=== PATIENT | female | born 1990 | race Caucasian/White ===

== ENCOUNTER 2020-04-03 07:48 | Outpatient (CLI) | payer OTHER, SELFPAY ==
[2020-04-03 08:36] LABS: Basophils Absolute Auto 0.1 K/mm3 (0.0-0.1); Eosinophils Absolute Auto 0.1 K/mm3 (0-0.3); Eosinophils Percent Auto 2.3 % (0-4.4); Hematocrit 36.4 % (37.0-47.0); Hemoglobin 12.8 g/dL (12.0-15.0); Immature Granulocyte Absolute 0.01 K/mm3 (0.00-0.031); Immature Granulocyte Percent A 0.2 % (0-0.5); Lymphocytes Absolute Auto 2.23 K/mm3 (0.9-3.2); Lymphocytes Percent Auto 42.8 % (18.3-44.2); Mean Corpuscular HGB Conc 35.2 g/dl (32-36); Mean Corpuscular Hemoglobin 31.8 pg (26-34); Mean Corpuscular Volume 90.3 fl (80-100); Mean Platelet Volume 9.1 fl (7.4-10.4); Monocytes Absolute Auto 0.4 K/mm3 (0.1-0.6); Monocytes Percent Auto 7.7 % (2.6-8.5); Neutrophils Absolute Auto 2.4 K/mm3 (1.3-6.7); Platelet Count Result 297 k/mm3 (150-375); Red Blood Count 4.03 M/mm3 (4.2-5.4); White Blood Count 5.2 K/mm3 (4.5-10.0)
[2020-04-03 08:54] LABS: Alanine Aminotransferase 17 U/L (4-35); Albumin Level 4.4 g/dL (3.5-5.1); Alkaline Phosphatase 49 U/L (38-126); Anion Gap 6 mmol/L (8-16); Aspartate Amino Transferase 26 U/L (14-36); Bilirubin,Total 0.5 mg/dL (0.2-1.3); Blood Urea Nitrogen 13 mg/dL (7-17); Calcium 9.4 mg/dL (8.4-10.2); Carbon Dioxide 28 mmol/L (22-30); Chloride 103 mmol/L (98-107); Cholesterol 228 mg/dL (0-200); Estimated Glomerular Filt Rate > 60; Glucose 89 mg/dL (65-105); HDL Direct 70 mg/dL; Potassium 4.2 mmol/L (3.4-5.0); Sodium 137 mmol/L (137-145); Triglycerides 95 mg/dL (<150)
[2020-04-03 09:05] LABS: LDL Cholesterol Direct 144 mg/dL
[2020-04-07 11:20] LABS: Vitamin D 1,25 (OH)2 Total 58 pg/mL (18-72); Vitamin D2 1,25 (OH)2 <8 pg/mL; Vitamin D3 1,25 (OH)2 58 pg/mL
== END 2020-04-03 07:49 | disposition home or self-care (01) ==
LOC: ANHLAB 07:52
PROVIDERS: PCP Student in an Organized Health Care Education/Training Program; Visit Provider Student in an Organized Health Care Education/Training Program
DX: Z00.00 Encounter for general adult medical examination without abnormal findings (principal); Z13.220 Encounter for screening for lipoid disorders
CPT/HCPCS: 36415; 80053; 80061; 82652; 84443; 85025

== ENCOUNTER 2021-09-16 20:07 | Emergency (ER) | payer OTHER, SELFPAY ==
[2021-09-16 20:09] VITALS: BP 109/68; PULSE 88; RESP 20; TEMP 36.3; O2SAT 100
--- NOTE | 2021-09-16 20:15 | ECG_ITS ---
Measurements Intervals [place] Rate: 79 P: 77 LA: 169 QRS: -74 QRSD: 102 T: 59 QT: 387 QTc: 445 Interpretive Statements SINUS RHYTHM INCOMPLETE RIGHT BUNDLE BRANCH BLOCK LEFT ANTERIOR FASCICULAR BLOCK ABNORMAL ECG Electronically Signed On 09-17-2021 6:34:09 CDT by Jake Coleman D.O.
[2021-09-16] MEDS: diazePAM INJ (*CRX) 10 MG/2 ML SYRINGE 2 MG IV PUSH (20:40)
[2021-09-16 20:41] LABS: Basophils Absolute Auto 0.1 K/mm3 (0.0-0.1); Basophils Percent Auto 0.6 % (0.2-1.2); Eosinophils Absolute Auto 0.1 K/mm3 (0-0.3); Eosinophils Percent Auto 0.6 % (0-4.4); Hematocrit 33.3 % (37.0-47.0); Hemoglobin 11.5 g/dL (12.0-15.0); Immature Granulocyte Absolute 0.02 K/mm3 (0.00-0.031); Immature Granulocyte Percent A 0.2 % (0-0.5); Lymphocytes Absolute Auto 2.41 K/mm3 (0.9-3.2); Lymphocytes Percent Auto 29.4 % (18.3-44.2); Mean Corpuscular HGB Conc 34.5 g/dl (32-36); Mean Corpuscular Hemoglobin 30.7 pg (26-34); Mean Corpuscular Volume 88.8 fl (80-100); Mean Platelet Volume 8.7 fl (7.4-10.4); Monocytes Absolute Auto 0.5 K/mm3 (0.1-0.6); Neutrophils Absolute Auto 5.2 K/mm3 (1.3-6.7); Neutrophils Percent Auto 63.2 % (45.5-73.1); Platelet Count Result 345 k/mm3 (150-375); Red Blood Count 3.75 M/mm3 (4.2-5.4); White Blood Count 8.2 K/mm3 (4.5-10.0)
[2021-09-16 20:50] LABS: Anion Gap 8 mmol/L (8-16); Blood Urea Nitrogen 14 mg/dL (7-17); Calcium 8.2 mg/dL (8.4-10.2); Carbon Dioxide 20 mmol/L (22-30); Chloride 108 mmol/L (98-107); Estimated CRCL calculation 81 ml/min; Estimated Glomerular Filt Rate > 60; Glucose 93 mg/dL (65-110); Potassium 3.5 mmol/L (3.4-5.0); Sodium 136 mmol/L (137-145)
[2021-09-16 21:27] LABS: Appearance Urine Clear (Clear); Bilirubin Urine Negative (Negative); Blood Urine Negative (Negative); Color Urine Yellow (Yellow); Glucose Urine UA Negative (Negative); Ketones Urine 1+ mg/dL (Negative); Leukocyte Esterase Ur Negative LEU/UL (Negative); Nitrate Urine Negative (Negative); Protein Urine Negative (Negative); Specific Grav Ur 1.015 (1.001-1.035); Urobilinogen Urine 0.2 mg/dL (<2.0); pH Urine 7.5 (5.0-9.0)
[2021-09-16 21:33] LABS: Mucus Urine Rare /lpf; Squamous Epithelial Cell Urine Rare /hpf (Few); WBC Urine 0-3 /hpf
[2021-09-16 21:35] LABS: Add Urine Microscopic? YES
[2021-09-16] MEDS: PROMETHAZINE HCL 25 MG/ML AMPUL 12.5 MG IV PUSH (21:38)
[2021-09-16] MEDS: SODIUM CHLORIDE 0.9% IV 1,000 ML 999 ML IV CONT (21:41)
--- NOTE | 2021-09-16 22:33 | ED.GENADULT ---
HPI - General Adult General Chief complaint: Dizziness Stated complaint: Nausea Time Seen by Provider: 09/16/21 20:11 History of Present Illness HPI narrative: Patient is a 30-year-old female who presents ER with dizziness. Rotational and worse with turning her head. Ongoing throughout the day. Has tried meclizine and Dramamine without improvement. They have all made her tired. She began having some vomiting this evening. She had taken some Zofran at home during the day. She received Zofran by EMS as well as some IV fluids. No focal weakness. She has had some tingling in her fingers when she gets extremely dizzy but feels like she has increased respiratory rate at that time. She has had no loss of consciousness. She reports she recently had COVID a couple weeks ago. No thunderclap headache or change in vision or hearing. No fevers or chills or sweats. She does have pressure in the left ear. Related Data Home Medications Medication Instructions Recorded Confirmed fluticasone propionate 50 1 spray intranasal DAILY 01/11/20 01/20/21 mcg/actuation nasal spray,suspension (Flonase Allergy Relief) loratadine 10 mg tablet (Claritin) 10 mg PO DAILY 01/11/20 01/20/21 vits 75-iron 28 mg-folic pkg PO 01/11/20 01/20/21 acid 800 mcg-omega-3 oral combo pack (One A Day Women's DHA) sumatriptan succinate 25 mg tablet 25 mg PO ONCE PRN 01/20/21 01/20/21 (Imitrex) Allergies Allergy/AdvReac Type Severity Reaction Status Date / Time acetaminophen [From [place]] AdvReac Nausea Verified 01/20/21 09:04 hydrocodone [From [place]] AdvReac Nausea Verified 01/20/21 09:04 Review of Systems Review of Systems: All systems reviewed & are unremarkable except as noted in HPI and below Constitutional: Constitutional: Denies chills, Denies fatigue and Denies fever(s) Eyes: Eyes: Denies change in vision ENT: Reports vertigo, Denies nasal congestion and Denies sore throat Comments: Ear pressure left side Cardiovascular: Cardiovascular: Denies chest pain, Denies rapid heart rate and Denies radiating jaw, neck or arm pain Respiratory: Respiratory: Denies cough and Denies dyspnea Gastrointestinal: Gastrointestinal: Denies abdominal pain, Reports nausea and Reports vomiting Neurologic: Reports vertigo, Denies syncope, Denies headache(s), Denies focal weakness and Denies numbness PMFSH Past Medical History Medical History Irritable bowel Migraines Surgical History Surgical History History of tonsillectomy [place] teeth removed Family History Family History Grandparent Diabetes mellitus Acute myocardial infarction Hypertension Father High cholesterol Social History Social History Smoking status: Never smoker Alcohol intake: current Substance use: never Exam Narrative: GENERAL: Well-appearing, well-nourished, and in no acute distress. HEAD: Normocephalic, atraumatic. EYES: PERRL and EOMI. ENT:Mucous membranes moist. Ear canals free of cerumen. Normal TMs bilaterally. CHEST: Clear to auscultation. No respiratory distress. HEART: Regular rate and rhythm. Normal peripheral pulses. ABDOMEN: Soft, nontender, nondistended. EXTREMITIES: Normal range of motion. No edema. NEURO: Alert and oriented x3. PSYCH: Normal mood and affect. Course Course Emergency Course: Patient feels slight improvement after 2 L of fluid and promethazine but still has some mild dizziness. Left ear manipulation did produce a pop suggesting opening of eustachian tube. Discussed return precautions. Discharge home. Vital Signs Vital signs: Vital Signs Temperature 97.4 F L 09/16/21 20:09 Pulse Rate 88 09/16/21 20:09 Respiratory Rate 20 09/16/21 20:09 Blood Pressure 10
[2021-09-16 22:50] VITALS: BP 105/55; PULSE 75; RESP 18; O2SAT 99
== END 2021-09-16 22:53 | disposition home or self-care (01) ==
PROVIDERS: Emergency Provider Emergency Medicine; PCP Student in an Organized Health Care Education/Training Program
DX: H81.392 Other peripheral vertigo, left ear (principal)
CPT/HCPCS: 36415; 80048; 81001; 81025; 85025; 93005; 96361; 96374; 96375; 99284; J2550; J3360; J7030

== ENCOUNTER 2021-10-12 06:14 | Day surgery (SDC) | payer OTHER, SELFPAY ==
[2021-10-12] VITALS (14 sets, daily range): BP systolic 96–134; BP diastolic 50–73; PULSE 66–120; RESP 14–24; TEMP 37.1–37.4; O2SAT 98–100
--- NOTE | ~2021-10-12 | CT_ITS ---
EXAMINATION: CT abdomen pelvis w con DATE: 10/12/2021 07:40 INDICATION: Abdominal pain. Nausea and vomiting. TECHNIQUE: Computed tomography (CT) of the abdomen and pelvis was performed with 100 mL Omnipaque 350 intravenous contrast. Automated exposure control and iterative reconstruction technique were employe d. The dose-length product was 345.06 mGy-cm. COMPARISON: None. FINDINGS: The visualized portions of the lung bases are clear without pneumonia or pleural effusion. The heart size is normal. No pericardial effusion. The liver, gallbladder, spleen, pancreas, adrenal glands, and kidneys are normal. The appendix is fluid-filled and dilated to 10 mm with wall thickenin g and surrounding fat stranding, consistent with appendicitis. There are no pathologically enlarged l ymph nodes. There is no free intraperitoneal fluid. The bones are unremarkable. IMPRESSION: 1. Acute appendicitis. Reviewed, dictated and finalized at location A. IMPRESSION: 1. Acute appendicitis.
[2021-10-12] MEDS: ONDANSETRON INJ 4 MG/2 ML VIAL IV PUSH (06:34)
[2021-10-12] MEDS: HYDROmorphone HCL INJ (*CRX) 1 MG/ML SYR 0.5 MG IV PUSH (06:46)
[2021-10-12 06:47] LABS: Basophils Absolute Auto 0.1 K/mm3 (0.0-0.1); Basophils Percent Auto 0.2 % (0.2-1.2); Hematocrit 35.6 % (37.0-47.0); Hemoglobin 12.2 g/dL (12.0-15.0); Immature Granulocyte Percent A 0.5 % (0-0.5); Lymphocytes Absolute Auto 1.91 K/mm3 (0.9-3.2); Lymphocytes Percent Auto 9.4 % (18.3-44.2); Mean Corpuscular HGB Conc 34.3 g/dl (32-36); Mean Corpuscular Hemoglobin 30.4 pg (26-34); Mean Corpuscular Volume 88.8 fl (80-100); Mean Platelet Volume 9.3 fl (7.4-10.4); Monocytes Absolute Auto 1.3 K/mm3 (0.1-0.6); Monocytes Percent Auto 6.5 % (2.6-8.5); Neutrophils Absolute Auto 16.8 K/mm3 (1.3-6.7); Neutrophils Percent Auto 83.4 % (45.5-73.1); Platelet Count Result 331 k/mm3 (150-375); Red Blood Count 4.01 M/mm3 (4.2-5.4); Red Cell Distribution Width 12.7 % (11.5-14.5); White Blood Count 20.2 K/mm3 (4.5-10.0)
[2021-10-12 06:57] LABS: Lactic Acid Reflex 1.5 mmol/L (0.7-2.0)
[2021-10-12] MEDS: SODIUM CHLORIDE 0.9% IV 1,000 ML 999 ML IV CONT (06:59)
[2021-10-12 07:01] LABS: Alanine Aminotransferase 16 U/L (6-35); Albumin Level 4.7 g/dL (3.5-5.1); Alkaline Phosphatase 74 U/L (38-126); Anion Gap 12 mmol/L (8-16); Aspartate Amino Transferase 20 U/L (14-36); Bilirubin,Total 0.7 mg/dL (0.2-1.3); Blood Urea Nitrogen 7 mg/dL (7-17); Calcium 9.5 mg/dL (8.4-10.2); Carbon Dioxide 21 mmol/L (22-30); Chloride 101 mmol/L (98-107); Estimated CRCL calculation 91 ml/min; Estimated Glomerular Filt Rate > 60; Glucose 140 mg/dL (65-110); Lipase 30 U/L (23-300); Potassium 3.5 mmol/L (3.4-5.0); Sodium 134 mmol/L (137-145)
--- NOTE | 2021-10-12 07:18 | PC.NURSE ---
Assumed care of pt. Pt reports 5/10 pain currently and has no request at this time. EDP updated.
[2021-10-12 07:32] LABS: Appearance Urine Clear (Clear); Bilirubin Urine Negative (Negative); Blood Urine Trace-lysed (Negative); Color Urine Yellow (Yellow); Glucose Urine UA Negative (Negative); Ketones Urine 2+ mg/dL (Negative); Leukocyte Esterase Ur Negative LEU/UL (Negative); Nitrate Urine Negative (Negative); Protein Urine Negative (Negative); Specific Grav Ur 1.015 (1.001-1.035); Urobilinogen Urine 0.2 mg/dL (<2.0)
[2021-10-12 07:42] LABS: Bacteria Urine Trace /hpf; Mucus Urine Rare /lpf; RBC Urine 0-2 /hpf (0-2); Squamous Epithelial Cell Urine Occasional /hpf (Few); WBC Urine 0-3 /hpf
[2021-10-12 07:43] LABS: Add Urine Microscopic? YES
--- NOTE | 2021-10-12 07:56 | ED.GENADULT ---
HPI - General Adult General Chief complaint: Abdominal Pain Stated complaint: ABD pain and nausea Time Seen by Provider: 10/12/21 07:12 History of Present Illness HPI narrative: Patient 30-year-old female that presents the emergency department with chief complaint of abdominal pain. Patient reports that approximately 2 days ago she started having a bloated like feeling throughout her abdomen and reports that she had pain more in the epigastric region. The patient states that over the last 2 days its localized down to the lower quadrants of her abdomen the patient denies fever reports that she has had bowel movements and her abdomen is less bloated now but still is having discomfort. The patient states the pain is worse with movement and improved with rest. Patient reports no prior surgical history of the abdomen reports no other acute medical conditions reports he last ate a piece of bread at approximately 3 AM and otherwise has had some sips of water. Related Data Home Medications Medication Instructions Recorded Confirmed fluticasone propionate 50 1 spray intranasal DAILY 01/11/20 01/20/21 mcg/actuation nasal spray,suspension (Flonase Allergy Relief) loratadine 10 mg tablet (Claritin) 10 mg PO DAILY 01/11/20 01/20/21 vits 75-iron 28 mg-folic pkg PO 01/11/20 01/20/21 acid 800 mcg-omega-3 oral combo pack (One A Day Women's DHA) sumatriptan succinate 25 mg tablet 25 mg PO ONCE PRN 01/20/21 01/20/21 (Imitrex) Allergies Allergy/AdvReac Type Severity Reaction Status Date / Time acetaminophen [From [place]] AdvReac Nausea Verified 10/12/21 06:29 hydrocodone [From [place]] AdvReac Nausea Verified 10/12/21 06:29 Review of Systems Review of Systems: A 10 system review of systems was completed on the patient and is negative except for what is stated in the HPI. Nursing and ancillary documentation was reviewed. [facility] Past Medical History Medical History Irritable bowel Migraines Surgical History Surgical History History of tonsillectomy [place] teeth removed Family History Family History Grandparent Diabetes mellitus Acute myocardial infarction Hypertension Father High cholesterol Social History Social History Smoking status: Never smoker Alcohol intake: current Substance use: never Exam Narrative: GENERAL: Well-appearing, well-nourished, and in no acute distress. HEAD: Normocephalic, atraumatic. EYES: PERRLA and EOMI. ENT: Nares clear, no rhinorrhea or epistaxis. Mucous membranes moist. NECK: Supple. CHEST: Clear to auscultation. No respiratory distress. HEART: Regular rate and rhythm. No murmur heard. Normal peripheral pulses. ABDOMEN: Soft, diffusely tender to palpation worse in right lower quadrant, nondistended, normal active bowel sounds. EXTREMITIES: Normal range of motion. No edema. SKIN: Warm, dry, no rash. NEURO: No focal deficits. Alert and oriented x3. PSYCH: Normal mood and affect. Course Course Emergency Course: patient is feeling better after iv fluids and pain medications. labs showed a leukocytosis and ct scan was consistent with acue appendicitis. Vital Signs Vital signs: Vital Signs Temperature 37.2 C 10/12/21 06:27 Pulse Rate 112 H 10/12/21 06:27 Respiratory Rate 24 H 10/12/21 06:27 Blood Pressure 107/57 L 10/12/21 06:27 Pulse Oximetry 100 10/12/21 06:27 Oxygen Delivery Room Air 10/12/21 06:27 Temperature 37.2 C 10/12/21 06:27 Pulse Rate 99 10/12/21 08:02 Respiratory Rate 18 10/12/21 08:02 Blood Pressure 115/70 10/12/21 08:02 Pulse Oximetry 100 10/12/21 08:02 Oxygen Delivery Room Air 10/12/21 06:27 Medical Decision Making Vital Si
[2021-10-12] MEDS: MORPHINE SULFATE (*CRX) 4 MG/ML INJ IV PUSH (08:43)
--- NOTE | 2021-10-12 09:31 | WPDANESEPPF ---
Anes - Initial Pre Proc Eval Procedure: Operation Date: 10/12/21 10:45 Proposed Procedures p Laparoscopic Appendectomy - Jonathan Lund DO Date/Time: 10/12/21 09:31 Surgeon: Jonathan Lund DO Pre Op Diagnosis: ABD pain and nausea Patient Data Age: 30 Gender: F Height: 1.65 m Weight: 68.1 kg Last Vital Signs Temp 37.2 C 10/12/21 06:27 Pulse 66 10/12/21 09:01 Resp 16 10/12/21 09:01 BP 111/66 10/12/21 09:01 Pulse Ox 100 10/12/21 09:01 O2 Del Method Room Air 10/12/21 06:27 Allergies Allergy/AdvReac Type Severity Reaction Status Date / Time hydrocodone [From [place]] AdvReac Nausea Verified 10/12/21 09:27 Home Medications Medication Instructions Recorded Confirmed Type fluticasone propionate 50 1 spray intranasal DAILY 01/11/20 01/20/21 History mcg/actuation nasal spray,suspension (Flonase Allergy Relief) loratadine 10 mg tablet (Claritin) 10 mg PO DAILY 01/11/20 01/20/21 History vits 75-iron 28 mg-folic pkg PO 01/11/20 01/20/21 History acid 800 mcg-omega-3 oral combo pack (One A Day Women's DHA) norgestimate-ethinyl estradiol 1 tablet PO DAILY #84 tabs 01/20/21 01/20/21 Rx 0.18 mg/0.215mg/0.25mg-35 mcg(28)tablet (Tri-Sprintec (28)) sumatriptan succinate 25 mg tablet 25 mg PO ONCE PRN 01/20/21 01/20/21 History (Imitrex) promethazine 25 mg tablet 12.5 mg PO Q6H PRN nausea #10 tabs 09/16/21 Rx Laboratory Tests 10/12/21 10/12/21 10/12/21 06:27 06:27 06:27 WBC 20.2 K/mm3 H K/mm3 (4.5-10.0) RBC 4.01 M/mm3 L M/mm3 (4.2-5.4) Hgb 12.2 g/dL g/dL (12.0-15.0) Hct 35.6 % L % (37.0-47.0) MCV 88.8 fl fl (80-100) MCH 30.4 pg pg (26-34) MCHC 34.3 g/dl g/dl (32-36) RDW 12.7 % % (11.5-14.5) Plt Count 331 k/mm3 k/mm3 (150-375) MPV 9.3 fl fl (7.4-10.4) Immature Gran % (Auto) 0.5 % % (0-0.5) Neut % (Auto) 83.4 % H % (45.5-73.1) Lymph % (Auto) 9.4 % L % (18.3-44.2) [place] % (Auto) 6.5 % % (2.6-8.5) Eos % (Auto) 0.0 % % (0-4.4) Baso % (Auto) 0.2 % % (0.2-1.2) Lymph # (Auto) 1.91 K/mm3 K/mm3 (0.9-3.2) [place] # (Auto) 1.3 K/mm3 H K/mm3 (0.1-0.6) Eos # (Auto) 0.0 K/mm3 K/mm3 (0-0.3) Baso # (Auto) 0.1 K/mm3 K/mm3 (0.0-0.1) Abs Immat Gran (auto) 0.10 K/mm3 H K/mm3 (0.00-0.031) Absolute Neuts (auto) 16.8 K/mm3 H K/mm3 (1.3-6.7) Absolute Nucleated RBC 0.0 K/mm3 K/mm3 (0.0-0.012) Nucleated RBC % 0.0 % % (0.0-0.2) Sodium 134 mmol/L L mmol/L (137-145) Potassium 3.5 mmol/L mmol/L (3.4-5.0) Chloride 101 mmol/L mmol/L (98-107) Carbon Dioxide 21 mmol/L L mmol/L (22-30) Anion Gap 12 mmol/L mmol/L (8-16) BUN 7 mg/dL D mg/dL (7-17) Creatinine 0.70 mg/dL mg/dL (0.7-1.0) Estim Creat Clear Calc 91 ml/min ml/min Estimated GFR > 60 (59 - ) Glucose 140 mg/dL H mg/dL (65-110) Lactic Acid 1.5 mmol/L mmol/L (0.7-2.0) Calcium 9.5 mg/dL mg/dL (8.4-10.2) Total Bilirubin 0.7 mg/dL mg/dL (0.2-1.3) AST 20 U/L U/L (14-36) ALT 16 U/L U/L (6-35) Alkaline Phosphatase 74 U/L U/L (38-126) Total Protein 8.0 g/dL g/dL (6.3-8.2) Albumin 4.7 g/dL g/dL (3.5-5.1) Lipase 30 U/L U/L (23-300) Urine Color Urine Appearance Urine pH Ur Specific [place] Urine Protein Urine Glucose (UA) Urine Ketones Ur Blood (Man) Urine Nitrate Urine Bilirubin Urine Urobilinogen Leukocyte Esterase Rfl Urine RBC Urine WBC Ur Squ
--- NOTE | 2021-10-12 10:07 | PM.IMHP ---
H&P: HPI History of Present Illness Date/Time: 10/12/21 10:07 Chief Complaint: RLQ pain Narrative: 30 yo woman presented to the ED with RLQ pain for the past 2 days. Started as bloating and gas pains that then localized to the lower abdomen and RLQ. Had some nausea and dry heaves. Denies fevers or change in bowel habits. Never had symptoms like this before. Review of Systems Review of Systems: All systems reviewed & are unremarkable except as noted in HPI and below Constitutional: Constitutional: Denies chills and Denies fever(s) Eyes: Eyes: Denies change in vision ENT: Denies hearing loss, Denies neck pain and Denies sore throat Cardiovascular: Cardiovascular: Denies chest pain and Denies dyspnea Respiratory: Respiratory: Denies cough, Denies dyspnea and Denies wheezing Gastrointestinal: Gastrointestinal: Reports as per HPI Genitourinary: Genitourinary: Denies hematuria and Denies dysuria Musculoskeletal: Musculoskeletal: Denies arthralgias, Denies joint swelling and Denies neck pain Allergic/Immunologic: Allergic/Immunologic: Denies wheezing [facility] Past Medical History Medical History Irritable bowel Migraines Surgical History Surgical History History of tonsillectomy [place] teeth removed Family History Family History Grandparent Diabetes mellitus Acute myocardial infarction Hypertension Father High cholesterol Social History Social History Smoking status: Never smoker Alcohol intake: current Substance use: never Meds Home Medications and Allergies Home Medications Medication Instructions Recorded Confirmed Type fluticasone propionate 50 1 spray intranasal DAILY 01/11/20 01/20/21 History mcg/actuation nasal spray,suspension (Flonase Allergy Relief) loratadine 10 mg tablet (Claritin) 10 mg PO DAILY 01/11/20 01/20/21 History vits 75-iron 28 mg-folic pkg PO 01/11/20 01/20/21 History acid 800 mcg-omega-3 oral combo pack (One A Day Women's DHA) norgestimate-ethinyl estradiol 1 tablet PO DAILY #84 tabs 01/20/21 01/20/21 Rx 0.18 mg/0.215mg/0.25mg-35 mcg(28)tablet (Tri-Sprintec (28)) sumatriptan succinate 25 mg tablet 25 mg PO ONCE PRN 01/20/21 01/20/21 History (Imitrex) promethazine 25 mg tablet 12.5 mg PO Q6H PRN nausea #10 tabs 09/16/21 Rx Allergies Allergy/AdvReac Type Severity Reaction Status Date / Time hydrocodone [From [place]] AdvReac Nausea Verified 10/12/21 09:27 Vital Signs Vital Signs - 24 hr 10/12/21 06:27 10/12/21 06:51 10/12/21 07:01 Temperature 37.2 C Pulse Rate 112 H Respiratory Rate 24 H Blood Pressure 107/57 L 116/66 134/59 L Pulse Oximetry 100 100 Oxygen Delivery Room Air 10/12/21 08:02 10/12/21 08:00 10/12/21 09:01 Temperature Pulse Rate 99 98 66 Respiratory Rate 18 16 16 Blood Pressure 115/70 115/70 111/66 Pulse Oximetry 100 100 100 Oxygen Delivery 10/12/21 09:18 Temperature 37.4 C Pulse Rate 116 H Respiratory Rate 16 Blood Pressure 121/63 Pulse Oximetry 100 Oxygen Delivery Room Air Exam Const: General: alert; No acute distress Orientation/consciousness: patient oriented x3 Limitations: no limitations HENMT: Head: normocephalic and atraumatic Ears: hearing grossly normal bilaterally General nose exam: Normal external nose present and Normal nares present Mouth: Yes Normal oral and palatal mucosa present and Yes moist mucous membranes Eyes: General: appearance normal, both eyes and all related structures Conjunctivae: conjunctivae normal Sclera: sclerae normal Pupils: Equal, round and reactive pupils present EOM: EOMs intact bilaterally Neck: Neck: normal visual inspection, full ROM, no lymphadenopathy, supple and no JVD
--- NOTE | 2021-10-12 10:12 | WPDHPUPDATE1 ---
History and Physical Update Update Date/Time: 10/12/21 10:12 History and Physical has been reviewed, including an updated exam of the patient. There are NO changes in the patient's condition. Risks, benefits, and alternatives have been discussed and questions answered. Patient agrees to proceed with procedure.
[2021-10-12] MEDS: BUPIVACAINE/EPINEPHRINE 0.25% 50 ML VIAL 30 ML INFILTRATE (10:47)
--- NOTE | 2021-10-12 11:41 | W.PM.PROC2 ---
Procedure Note - Detailed Date of Procedure 10/12/21 Pre-op Diagnosis Acute appendicitis Post-op Diagnosis Same Procedure Performed Laparoscopic appendectomy Surgeon Jonathan Lund, DO Anesthesia General and Local (0.5% bupivacaine with epinephrine) Indications This is a 30-year-old woman who presented to the emergency department this morning with right lower quadrant pain that started 2 days ago. She was initially having some bloating and cramping pain that then localized to the right lower quadrant. She had never had any pain like this in the past. She denied any fevers or chills. She was noted to have an elevated white blood count and CT showed evidence of acute appendicitis. Discussions were made with the patient about treatment options and decision was made to proceed with laparoscopic appendectomy, possible open. Findings Laparoscopic appendectomy was performed. The appendix appeared acutely inflamed and had some surrounding exudate, but no clearly identified perforation was noted. The base of the appendix appeared healthy and viable. The appendix was removed and sent to the lab for pathology. Description of Procedure Procedure as well as risks, benefits, and alternatives were explained to the patient. The patient agreed to proceed. Written consent was obtained and placed in chart prior to procedure. The patient was brought back to surgical suite. She was placed supine on operating table. Time-out was done to confirm the patient and procedure. The patient was then intubated by the Anesthesia Department. Her abdomen was prepped and draped in sterile fashion using chlorhexidine prep. A 12 mm incision was made at the inferior portion of the umbilicus. Blunt dissection was carried out down to the linea alba. The linea alba was then incised using a 15 blade scalpel. Then bluntly entered into the peritoneal cavity. A 12 mm trocar was then inserted, and carbon dioxide insufflation was used to create a pneumoperitoneum. The camera was inserted and the abdomen was inspected. No immediate abnormalities were identified. The patient was then placed in slight Trendelenburg position and rotated to the left. A 5 mm incision was made in the suprapubic region in midline and a 5 mm trocar was inserted under direct visualization. A 5 mm incision was made in the left lower quadrant and a 5 mm trocar was inserted under direct visualization. The right lower quadrant was carefully inspected. The cecum was identified and then this was traced back to the appendix. The appendix was identified and grasped at the mesoappendix and lifted anteriorly. Careful blunt dissection was carried out at the base of the appendix through the mesoappendix using a [place] grasper. An Endo-LEIDY 45 mm blue load stapler was then advanced across the base of the appendix and clamped and fired. A white reload was then clamped across the mesoappendix and fired. This freed up our appendix completely. It was then placed in an EndoCatch bag and removed through the umbilical port. The staple lines were then inspected. Hemostasis appeared adequate and the staple lines appeared secure. The area was then irrigated with sterile saline. The pelvis was then carefully inspected and irrigated with sterile saline as well and the remainder of the abdomen was carefully inspected. The patient was then flattened out in bed. One final inspection was made around the abdominal cavity and no other abnormalities were seen. The ports were then removed under direct visualization. The camera was removed and the pneumoperitoneum was released. The fascia of the umbilical incision was reapproximated using an 0 Vicryl [id number] suture. 0.5% bupivacaine with epinephrine was infiltrated locally around each of the incisions. The skin of the incisions was then approximated using 4-0 Monocryl subcuticular suture and Exofin glue was applied on top. The patient was then awakened from anesthesia, extubated
[2021-10-12] MEDS: LACTATED RINGERS 1,000 ML 30 ML IV CONT ×2 (11:49)
[2021-10-12] MEDS: fentaNYL CITRATE INJ (*CRX) 100 MCG/2 ML VIAL 25 MCG IV PUSH ×4 (12:03→12:15)
== END 2021-10-12 13:53 | disposition home or self-care (01) ==
LOC: ANHED 08:49 → ANHSURGERY 08:55
PROVIDERS: Emergency Medicine; Emergency Provider Emergency Medicine; PCP Student in an Organized Health Care Education/Training Program; Visit Provider Surgery
PROC: 0DTJ4ZZ Resection of Appendix, Percutaneous Endoscopic Approach (ICD-10-PCS; CPT 44970; principal; 2021-10-12 10:45)
DX: K35.80 Unspecified acute appendicitis (principal)
CPT/HCPCS: 44970; 36415; 74177; 80053; 81001; 81025; 83605; 83690; 85025; 88304; J0330; J1100; J1170; J2250; J2270; J2405; J2543; J2704; J2710; J3010; J7030; J7120; Q9967

== ENCOUNTER 2023-08-02 09:48 | Inpatient (IN) | payer OTHER, SELFPAY ==
[2023-08-02] VITALS (63 sets, daily range): BP systolic 97–143; BP diastolic 43–96; PULSE 25–113; RESP 14–22; TEMP 36.6–37.4; O2SAT 85–100; BMI 31.8
[2023-08-02] MEDS: ACETAMINOPHEN 500 MG TABLET 1000 MG PO (10:17)
[2023-08-02] MEDS: LACTATED RINGERS 1,000 ML 125 ML IV CONT (10:51)
[2023-08-02] MEDS: ceFAZolin 2 GM/D5W 50 ML 2 GM/50 ML BAG IVPB (10:51)
--- NOTE | 2023-08-02 10:53 | LDADM ---
This patient, Jael Arndt, was admitted to Labor/Delivery/Recovery 120 on 08/02/23 at 09:48. Plans for labor, pain management and were discussed with patient. Patient/family oriented to hospital policies and general routines including ID bracelet, bed and alarms, visiting hours, pain management, procedures, bathroom and other care routines, personal items, smoking policy, room service/diet and guest tray routines, security routines, and visiting hours. Patient/Family are encouraged to report perceived risks to care and to ask questions if they do not understand what they are told or what they should do. See [facility]BIX for further documentation.
--- NOTE | 2023-08-02 10:54 | P.PNAN_ITS ---
Anes - Initial Pre Proc Eval Procedure: Operation Date: 08/02/23 12:00 Proposed Procedures p Section - Sanya Fisher MD Date/Time: 08/02/23 10:54 Surgeon: Sanya Fisher MD Pre Op Diagnosis: C/S Patient Data Age: 32 Gender: F Height: Weight: Last Vital Signs Temp 36.8 C 08/02/23 10:17 Pulse Ox 100 08/02/23 10:50 Allergies Allergy/AdvReac Type Severity Reaction Status Date / Time hydrocodone [From [place]] AdvReac Nausea Verified 07/09/23 13:23 Home Medications Medication Instructions Recorded Confirmed Type vits 75-iron 28 mg-folic 1 pkg PO DAILY 01/11/20 07/09/23 History acid 800 mcg-omega-3 oral combo pack (One A Day Women's DHA) cetirizine 10 mg tablet (Zyrtec) 10 mg PO DAILY 07/09/23 07/09/23 History docusate sodium 100 mg capsule 100 mg PO BID 07/09/23 07/09/23 History (Colace) famotidine 20 mg tablet (Pepcid) 10 mg PO BID 07/09/23 07/09/23 History Patient hx anesthesia problems: none Family hx anesthesia problems: none Results Review: All pre-operative results and documents have been reviewed as part of the pre- operative evaluation. [facility] Past Medical History Medical History Irritable bowel Migraines Surgical History Surgical History History of laparoscopic appendectomy 10/12/21 History of tonsillectomy [place] teeth removed Family History Family History (Updated 07/09/23 @ 13:32 by Faye Jarrell RN) Grandparent Diabetes mellitus Acute myocardial infarction Hypertension Father High cholesterol Raynauds disease Mother Clot Social History Social History Smoking status: Never smoker Alcohol intake: current Substance use: never Spiritual care concerns: No Anes - Eval Final PreProcedure Day of Procedure 08/02/23 10:54 Patient weight: obese Heart: regular rate and rhythm Lungs: clear to auscultation and normal air movement Airway: Mallampati scale class II Neurological: alert and oriented Last oral intake: >/= 8 hours ASA classification: II Emergent: no Anesthetic plan: proceed Anesthesia type and monitoring: regional spinal and standard monitoring Results Review: All pre-operative results and documents have been reviewed as part of the pre- operative evaluation. Informed Consent: The patient's anesthetic plan and its attendant risks and benefits were discussed with the patient/family/POA. Questions were solicited and answers provided to the satisfaction of the patient/family/POA.
[2023-08-02 11:00] LABS: Basophils Absolute Auto 0.1 K/mm3 (0.0-0.1); Basophils Percent Auto 0.6 % (0.2-1.2); Eosinophils Absolute Auto 0.1 K/mm3 (0-0.3); Eosinophils Percent Auto 0.9 % (0-4.4); Hematocrit 39.3 % (37.0-47.0); Hemoglobin 13.6 g/dL (12.0-15.0); Immature Granulocyte Absolute 0.13 K/mm3 (0.00-0.031); Immature Granulocyte Percent A 1.3 % (0-0.5); Lymphocytes Percent Auto 17.9 % (18.3-44.2); Mean Corpuscular HGB Conc 34.6 g/dl (32-36); Mean Corpuscular Hemoglobin 32.7 pg (26-34); Mean Corpuscular Volume 94.5 fl (80-100); Mean Platelet Volume 9.8 fl (7.4-10.4); Monocytes Absolute Auto 0.5 K/mm3 (0.1-0.6); Monocytes Percent Auto 5.3 % (2.6-8.5); Neutrophils Absolute Auto 7.5 K/mm3 (1.3-6.7); Platelet Count Result 246 k/mm3 (150-375); Red Blood Count 4.16 M/mm3 (4.2-5.4); Red Cell Distribution Width 13.2 % (11.5-14.5); White Blood Count 10.1 K/mm3 (4.5-10.0)
[2023-08-02 11:50] LABS: HIV 1/2 Ab P24 Ag Result Negative (Negative)
[2023-08-02] MEDS: FAMOTIDINE 20 MG/2 ML VIAL IV PUSH (12:06)
[2023-08-02] MEDS: ONDANSETRON INJ 4 MG/2 ML VIAL IV PUSH (12:06)
--- NOTE | 2023-08-02 12:08 | PM.IMHP ---
H&P: HPI History of Present Illness Date/Time: 08/02/23 12:08 Chief Complaint: Here for c section Narrative: 32 y/o G1 at 39 2/7 weeks here for scheduled for persistent breech presentation. She declined trial of ECV. GBS neg. Review of Systems Review of Systems: All systems reviewed & are unremarkable except as noted in HPI and below PMFSH Past Medical History Medical History Irritable bowel Migraines Surgical History Surgical History History of laparoscopic appendectomy 10/12/21 History of tonsillectomy Issue teeth removed Family History Family History Grandparent Diabetes mellitus Acute myocardial infarction Hypertension Father High cholesterol Raynauds disease Mother Clot Social History Social History Smoking status: Never smoker Second hand tobacco smoke exposure: No Alcohol intake: current Substance use: never Do You Feel Safe in your Home?: Yes Lack of Transportation: No Lack of Food: Never True Current Housing: I Have Housing Concerned About Future Housing: No Difficulty Paying Gas/Electric Bills: No Difficulty Paying for Meds: No Currently Unemployed: No Education: Master's Degree or Higher Difficulty w/ Childcare or Family Care: No Spiritual care concerns: No Meds Home Medications and Allergies Home Medications Medication Instructions Recorded Confirmed Type vits 75-iron 28 mg-folic 1 pkg PO DAILY 01/11/20 07/09/23 History acid 800 mcg-omega-3 oral combo pack (One A Day Women's DHA) cetirizine 10 mg tablet (Zyrtec) 10 mg PO DAILY 07/09/23 07/09/23 History docusate sodium 100 mg capsule 100 mg PO BID 07/09/23 07/09/23 History (Colace) famotidine 20 mg tablet (Pepcid) 10 mg PO BID 07/09/23 07/09/23 History Allergies Allergy/AdvReac Type Severity Reaction Status Date / Time hydrocodone [From [place]] AdvReac Nausea Verified 07/09/23 13:23 Vital Signs Vital Signs - 24 hr 08/02/23 10:17 08/02/23 10:53 08/02/23 10:19 Temperature 36.8 C Pulse Rate Blood Pressure Pulse Oximetry 97 Oxygen Delivery Room Air 08/02/23 10:24 08/02/23 10:29 08/02/23 10:34 Temperature Pulse Rate Blood Pressure Pulse Oximetry 100 100 100 Oxygen Delivery 08/02/23 10:39 08/02/23 10:50 08/02/23 10:55 Temperature Pulse Rate Blood Pressure Pulse Oximetry 100 100 100 Oxygen Delivery 08/02/23 11:00 08/02/23 11:05 08/02/23 11:10 Temperature Pulse Rate 82 Blood Pressure 112/67 Pulse Oximetry 100 100 100 Oxygen Delivery 08/02/23 11:15 08/02/23 11:20 08/02/23 11:25 Temperature Pulse Rate 86 Blood Pressure 114/71 Pulse Oximetry 100 100 100 Oxygen Delivery 08/02/23 11:30 08/02/23 11:58 08/02/23 12:00 Temperature Pulse Rate 86 83 83 Blood Pressure 118/72 111/69 105/59 L Pulse Oximetry 100 Oxygen Delivery Exam Const: Orientation/consciousness: patient oriented x3 Other: Well-developed, well-nourished female in no acute distress. Neck: Thyroid: thyroid normal Lymphatic: no lymphadenopathy noted (in neck, axilla or inguinal nodes) Resp: Effort & Inspection: normal respiratory effort Auscultation: clear to auscultation bilaterally Cardio: Rate: regular rate Rhythm: regular rhythm Heart sounds: S1 normal heart sound present and S2 normal heart sound present GI: Other: ABD: Soft, nontender, nondistended, gravid. NST reactive. TOCO: no contractions. No guarding or rebound tenderness. No hepatosplenomegaly. Bedside ultrasound exam by me shows persistent breech presentation. : General: Yes no CVA tenderness Other: Cervix ft/50 Back/Spine/Pelvis: Back: no CVA tenderness Skin: Gen
--- NOTE | 2023-08-02 12:11 | WPDHPUPDATE1 ---
History and Physical Update Update Date/Time: 08/02/23 12:11 History and Physical has been reviewed, including an updated exam of the patient. There are NO changes in the patient's condition. Risks, benefits, and alternatives have been discussed and questions answered. Patient agrees to proceed with procedure.
--- NOTE | 2023-08-02 13:28 | W.PM.OBCSD ---
OB - Delivery Note Procedure Delivery date: 08/02/23 Pre-op diagnosis: Breech Presentation Post-op Diagnosis: Same Delivery monitor: External FHT and External Uterine Procedure Performed: Primary Surgeon: Sanya Fisher MD Anesthesia type: Spinal Description of Procedure/Findings: Findings: Female infant in aislinn breech presentation. Uterus, tubes and ovaries unremarkable. Placenta normal-appearing with 3VC. Techniques: The patient was taken to the operating room where she was prepared and draped in the usual sterile fashion in dorsal supine position with a leftward tilt. She received cefazolin preoperatively. Spinal anesthesia was found to be adequate. A Pfannenstiel skin incision was made and carried through to the underlying layer of the fascia. The fascia was incised in the midline and the incision was extended laterally. The fascia was dissected free of the underlying rectus muscles. The rectus muscles were in the midline. The peritoneum was identified, tented up and entered sharply. The peritoneal incision was extended superiorly and inferiorly with good visualization of the bladder. The bladder blade was placed. The vesicouterine peritoneum was identified, tented up and entered sharply. The incision was extended laterally and the bladder flap was developed. The bladder blade was replaced. The uterus was then incised sharply in a transverse fashion along the lower uterine segment. The incision was extended laterally. The infant's head was delivered atraumatically to the sterile field, followed by the body. The nose and mouth were bulb suctioned. After a delay, the cord was clamped and cut. The was handed off the field. Cord blood was collected. The placenta was removed manually and was passed off the field. The uterus was exteriorized and cleared of all clots and debris. The uterine incision was reapproximated using 0 Monocryl in a running, locked fashion. A second, imbricating layer of the same suture was run. Excellent hemostasis resulted as did excellent reapproximation of the normal anatomy. The uterus was returned the abdomen. The pelvis was irrigated copiously with warmed normal saline. Rigorous hemostasis was assured. The fascial layer was reapproximated using 0 Vicryl in a running fashion. The skin was closed with a running, subcuticular stitch of 4 0 Vicryl. Dermaflex was applied externally. Sponge, lap, needle and instrument counts were correct. The patient was taken to the recovery room in stable condition. The infant went to the nursery in stable condition. I was present and scrubbed the entire procedure. Specimen: Yes (cord blood) Estimated Blood Loss: 495 Urine Output: 200 Drains: Yes (lopez) Baby Date of : 08/02/23 Time of : 12:46 Weeks of gestation at delivery: 39 gender: Female Weight (pounds): 8 Weight (ounces): 1 presentation: aislinn breech Placenta delivery description: Manual Removal and Normal Configuration Cord Vessel Description: 3 Vessels score one minute: 8 score five minutes: 9
--- NOTE | 2023-08-02 13:30 | P.DS_ITS ---
DS: Admitting Diagnosis Discharge Date 08/04/23 Admitting Diagnosis IUP at 39 2/7 weeks Vincenzo breech presentation DS: Discharge Diagnosis Discharge Diagnosis (1) delivery delivered: Code(s): O82 - Encounter for delivery without indication Status: Acute OB - DS: Summary OB Procedures : NST and Ultrasound OB Procedures Intrapartum: OB Procedures: : None Peripartum Data Procedures: Procedures Operation Date: 08/02/23 12:00 <No data on this case meets the specified criteria> DS: Data Data Completed and Pending Labs on day of discharge: Labs from last 24 hours 08/02/23 10:21 WBC 10.1 H RBC 4.16 L Hgb 13.6 Hct 39.3 MCV 94.5 MCH 32.7 MCHC 34.6 RDW 13.2 Plt Count 246 MPV 9.8 Immature Gran % (Auto) 1.3 H Neut % (Auto) 74.0 H Lymph % (Auto) 17.9 L [place] % (Auto) 5.3 Eos % (Auto) 0.9 Baso % (Auto) 0.6 Lymph # (Auto) 1.80 [place] # (Auto) 0.5 Eos # (Auto) 0.1 Baso # (Auto) 0.1 Abs Immat Gran (auto) 0.13 H Absolute Neuts (auto) 7.5 H Absolute Nucleated RBC 0.000 Nucleated RBC % 0.0 RPR Pending HIV 1&2 Ab/P24 Ag 4thGn Negative Blood Type A Positive Antibody Screen Negative Discharge Plan Discharge Attending physician on discharge: Sanya Fisher Discharging Clinician: Sanya Fisher Patient Disposition: Home, Self-Care Activity: may shower, may drive after 2 weeks and pelvic rest Diet: regular Wound Care Instructions: incision open to air Discharge Instructions: Call or return if temperature above 100.4? F, increased abdominal pain, increased vaginal bleeding or any new problems. Stand Alone Forms: General Discharge Information Follow-up/Referrals: Sanya Fisher MD [Physician] - 4 Weeks Discharge Medications: New ibuprofen 600 mg tablet 600 mg PO Q6H PRN (Reason: cramps) Qty: 30 0RF ferrous sulfate 325 mg (65 mg iron) tablet 325 mg PO DAILY Qty: 30 0RF oxycodone-acetaminophen [Percocet] 5-325 mg tablet 1 - 2 tablet PO Q6H PRN (Reason: pain) Qty: 30 0RF Continued One A Day Women's DHA 28 mg iron- 800 mcg combo pack 1 pkg PO DAILY cetirizine [Zyrtec] 10 mg Tablet 10 mg PO DAILY famotidine [Pepcid] 20 mg Tablet 10 mg PO BID docusate sodium [Colace] 100 mg Capsule 100 mg PO BID Date of admission: 08/02/23 09:48 Primary Care Provider: Felipe,Sidney Admitting Provider: Sanya Fisher Attending physician on admission: Sanya Fisher Condition: Stable
--- NOTE | 2023-08-02 15:33 | OBPPTRN ---
Patient transferred to post room #280 via stretcher. Support person present. Oriented to unit, room, information board, rooming in, admission packet and security measures. Patient verbalizes understanding.
[2023-08-02] MEDS: DOCUSATE SODIUM 100 MG CAPSULE PO (16:56)
[2023-08-02] MEDS: SIMETHICONE 80 MG TAB.CHEW PO (16:56)
[2023-08-02] MEDS: ACETAMINOPHEN 325 MG TABLET 650 MG PO ×2 (16:56→23:03)
[2023-08-02] MEDS: KETOROLAC 15 MG/ML VIAL (*BKC) IV PUSH ×2 (16:57→23:03)
[2023-08-02] MEDS: DEXTROSE 5%/0.45% SOD CHL 1,000 ML 125 ML IV CONT (19:32)
[2023-08-03 00:03] VITALS: BP 100/55; PULSE 91; RESP 18; TEMP 37; O2SAT 99
[2023-08-03 04:30] VITALS: BP 102/71; PULSE 83; RESP 18; TEMP 36.8; O2SAT 100
[2023-08-03 05:05] LABS: Basophils Percent Auto 0.3 % (0.2-1.2); Eosinophils Absolute Auto 0.1 K/mm3 (0-0.3); Eosinophils Percent Auto 0.6 % (0-4.4); Hematocrit 28.1 % (37.0-47.0); Hemoglobin 9.5 g/dL (12.0-15.0); Immature Granulocyte Absolute 0.12 K/mm3 (0.00-0.031); Lymphocytes Absolute Auto 1.39 K/mm3 (0.9-3.2); Lymphocytes Percent Auto 11.6 % (18.3-44.2); Mean Corpuscular HGB Conc 33.8 g/dl (32-36); Mean Corpuscular Hemoglobin 32.2 pg (26-34); Mean Corpuscular Volume 95.3 fl (80-100); Monocytes Absolute Auto 0.8 K/mm3 (0.1-0.6); Monocytes Percent Auto 6.3 % (2.6-8.5); Neutrophils Absolute Auto 9.6 K/mm3 (1.3-6.7); Neutrophils Percent Auto 80.2 % (45.5-73.1); Platelet Count Result 180 k/mm3 (150-375); Red Blood Count 2.95 M/mm3 (4.2-5.4); Red Cell Distribution Width 13.2 % (11.5-14.5)
[2023-08-03] MEDS: KETOROLAC 15 MG/ML VIAL (*BKC) IV PUSH ×2 (05:30→11:44)
[2023-08-03] MEDS: ACETAMINOPHEN 325 MG TABLET 650 MG PO ×3 (05:30→17:52)
[2023-08-03 07:35] VITALS: BP 103/63; PULSE 90; RESP 16; TEMP 36.8; O2SAT 100
[2023-08-03] MEDS: DOCUSATE SODIUM 100 MG CAPSULE PO ×2 (09:22→17:51)
[2023-08-03] MEDS: POLYSACCHARIDE IRON COMPLEX 150 MG CAPSULE PO ×2 (09:23→17:51)
[2023-08-03] MEDS: SIMETHICONE 80 MG TAB.CHEW PO ×3 (09:23→17:51)
[2023-08-03] MEDS: MULTIVIT/MIN/PREN/FOL AC/IRON TABLET 1 TAB PO (09:23)
[2023-08-03 12:05] VITALS: BP 106/61; PULSE 87; RESP 16; TEMP 36.8; O2SAT 100
[2023-08-03 14:53] LABS: Rapid Plasma Reagin Non-Reactive (NonReactive)
--- NOTE | 2023-08-03 15:08 | WPDANLDPN2 ---
Anes-Prog Note L&D Date/Time: 08/03/23 15:08 Comfortable throughout: section Neuraxial method: spinal Epidural/Spinal procedure site: clean & non-tender Neuro status: Neuro function grossly intact. Cardiovascular status: normal Respiratory status: normal Airway patency: baseline Mental status: baseline Post-Op hydration status: normal Vital Signs: Last Vital Signs Temp 36.8 C 08/03/23 12:05 Pulse 87 08/03/23 12:05 Resp 16 08/03/23 12:05 BP 106/61 08/03/23 12:05 Pulse Ox 100 08/03/23 12:05 O2 Del Method Room Air 08/02/23 15:50 Pain score (VAS): 3/10 I/O: Intake & Output 08/02/23 08/03/23 08/03/23 23:59 07:59 15:59 Output Total 795 4680 Balance -827 -1796 Post-procedural complaints: none Patient feedback: Patient satisfied with anesthetic care.
--- NOTE | 2023-08-03 15:08 | WPDANLDNPN2 ---
Anes-Prog Note L&D-Neuraxial Date/Time: 08/03/23 15:08 Neuraxial medications: intrathecal PF morphine Opiod-related complaints: none Patient feedback: Patient satisfied with post-operative pain management.
--- NOTE | 2023-08-03 15:13 | PC.NURSE ---
[id number] Introductions were made, then consulted with patient to assess needs related to . Discussed with mother her?plans to feed?her infant and the?experience so far. Resources provided for inpatient and outpatient services with the feeding sheet, mom/baby guide and name written on the communication board. Discussed positioning for effective and reviewed what an effective breastfeed is to feel and look like with no pain. Mother voiced understanding of information and will call if there is a request for assistance.
--- NOTE | 2023-08-03 15:23 | PM.OBPNVD ---
OB - PN: Subj Subjective Date/time seen: 08/03/23 15:23 Narrative: Pain OK. Tolerating diet. OB - PN: Obj Data Labs 08/03/23 04:22 Labs: Laboratory Results - last 24 hr 08/02/23 08/03/23 10:21 04:22 WBC 12.0 H RBC 2.95 L Hgb 9.5 L D Hct 28.1 L MCV 95.3 MCH 32.2 MCHC 33.8 RDW 13.2 Plt Count 180 MPV 10.0 Immature Gran % (Auto) 1.0 H Neut % (Auto) 80.2 H Lymph % (Auto) 11.6 L [place] % (Auto) 6.3 Eos % (Auto) 0.6 Baso % (Auto) 0.3 Lymph # (Auto) 1.39 [place] # (Auto) 0.8 H Eos # (Auto) 0.1 Baso # (Auto) 0.0 Abs Immat Gran (auto) 0.12 H Absolute Neuts (auto) 9.6 H Absolute Nucleated RBC 0.000 Nucleated RBC % 0.0 RPR Non-reactive OB - PN A/P Plan Comments: A: POD#1, doing well. P: Routine care. Exam Narrative: AVSS I/O OK ABD soft, nontender, fundus firm. Incision c/d/i. EXT nontender
[2023-08-03] MEDS: IBUPROFEN 600 MG TABLET PO (17:52)
[2023-08-03 20:10] VITALS: BP 116/80; PULSE 86; RESP 18; TEMP 36.5; O2SAT 99
[2023-08-04] MEDS: IBUPROFEN 600 MG TABLET PO ×2 (00:07→05:46)
[2023-08-04] MEDS: ACETAMINOPHEN 325 MG TABLET 650 MG PO ×2 (00:07→05:45)
[2023-08-04] MEDS: DOCUSATE SODIUM 100 MG CAPSULE PO (06:48)
[2023-08-04] MEDS: SIMETHICONE 80 MG TAB.CHEW PO (06:48)
[2023-08-04] MEDS: POLYSACCHARIDE IRON COMPLEX 150 MG CAPSULE PO (06:48)
[2023-08-04] MEDS: MULTIVIT/MIN/PREN/FOL AC/IRON TABLET 1 TAB PO (06:49)
[2023-08-04 09:00] VITALS: BP 114/60; PULSE 74; RESP 16; TEMP 36.7; O2SAT 100
[2023-08-04] MEDS: LORATADINE 5 MG TABLET PO (09:09)
--- NOTE | 2023-08-04 09:09 | PM.OBPNVD ---
OB - PN: Subj Subjective Date/time seen: 08/04/23 09:09 Narrative: Pain OK. Tolerating diet. Would like to go home. OB - PN: Obj Data Labs 08/03/23 04:22 Labs: Laboratory Results - last 24 hr 08/02/23 10:21 RPR Non-reactive OB - PN A/P Plan Comments: A: POD#2, doing well. P: Home to f/u 4 weeks. Exam Narrative: AVSS ABD soft, nontender, fundus firm. Incision c/d/i. EXT nontender
[2023-08-05 09:25] VITALS: BP 105/70; PULSE 74; RESP 18; TEMP 36.9; O2SAT 98
== END 2023-08-04 09:49 | disposition home or self-care (01) | DRG 788 ==
LOC: ANHLDR 13:33 → ANHOB2 15:35
PROVIDERS: Admitting Provider Obstetrics & Gynecology; PCP Student in an Organized Health Care Education/Training Program; Visit Provider Obstetrics & Gynecology
PROC: 10D00Z1 Extraction of Products of Conception, Low, Open Approach (ICD-10-PCS; CPT 59514; principal; 2023-08-02 12:00)
DX: O32.1XX0 Maternal care for breech presentation, not applicable or unspecified (principal); Z3A.39 39 weeks gestation of pregnancy; Z37.0 Single live birth
CPT/HCPCS: 36415; 85025; 86592; 86703; 86850; 86900; 86901; A9270; G0432; J0690; J1885; J2274; J2371; J2405; J2590; J7120

== ENCOUNTER 2024-02-24 07:18 | Outpatient (CLI) | payer OTHER, SELFPAY ==
[2024-02-24 08:17] LABS: Basophils Absolute Auto 0.1 K/mm3 (0.0-0.1); Basophils Percent Auto 1.1 % (0.2-1.2); Eosinophils Absolute Auto 0.2 K/mm3 (0-0.3); Eosinophils Percent Auto 3.5 % (0-4.4); Hematocrit 37.6 % (37.0-47.0); Hemoglobin 12.8 g/dL (12.0-15.0); Immature Granulocyte Absolute 0.02 K/mm3 (0.00-0.031); Immature Granulocyte Percent A 0.3 % (0-0.5); Lymphocytes Absolute Auto 2.52 K/mm3 (0.9-3.2); Lymphocytes Percent Auto 39.6 % (18.3-44.2); Mean Corpuscular Hemoglobin 31.2 pg (26-34); Mean Corpuscular Volume 91.7 fl (80-100); Mean Platelet Volume 9.5 fl (7.4-10.4); Monocytes Absolute Auto 0.4 K/mm3 (0.1-0.6); Monocytes Percent Auto 6.3 % (2.6-8.5); Neutrophils Absolute Auto 3.1 K/mm3 (1.3-6.7); Neutrophils Percent Auto 49.2 % (45.5-73.1); Platelet Count Result 317 k/mm3 (150-375); Red Cell Distribution Width 12.8 % (11.5-14.5); White Blood Count 6.4 K/mm3 (4.5-10.0)
[2024-02-24 08:21] LABS: Alanine Aminotransferase 18 U/L (6-35); Albumin Level 4.4 g/dL (3.5-5.1); Alkaline Phosphatase 83 U/L (38-126); Anion Gap 6 mmol/L (4-12); Aspartate Amino Transferase 22 U/L (14-36); Bilirubin,Total 0.4 mg/dL (0.2-1.3); Blood Urea Nitrogen 22 mg/dL (7-17); Calcium 9.2 mg/dL (8.4-10.2); Carbon Dioxide 25 mmol/L (22-30); Chloride 108 mmol/L (98-107); Cholesterol 168 mg/dL (0-200); Estimated Glomerular Filt Rate > 60; Glucose 75 mg/dL (65-110); HDL Direct 58 mg/dL; Sodium 139 mmol/L (137-145); Triglycerides 39 mg/dL (<150)
[2024-02-24 08:32] LABS: LDL Cholesterol Direct 86 mg/dL
== END 2024-02-24 07:19 | disposition home or self-care (01) ==
LOC: ANHLAB 07:21
PROVIDERS: PCP Student in an Organized Health Care Education/Training Program; Visit Provider Student in an Organized Health Care Education/Training Program
DX: Z13.0 Encounter for screening for diseases of the blood and blood-forming organs and certain disorders involving the immune mechanism (principal); Z13.228 Encounter for screening for other metabolic disorders; Z13.29 Encounter for screening for other suspected endocrine disorder; Z13.220 Encounter for screening for lipoid disorders
CPT/HCPCS: 36415; 80053; 80061; 84443; 85025